=== PATIENT | male | born 1950 | race Caucasian/White ===

== ENCOUNTER 2017-05-08 11:08 | Inpatient (IN) | payer MEDICAID ==
[2017-05-08] MEDS ORDERED: Nitroglycerin 2% OINT* 1 GM PAK TOPICAL ONE (11:31)
[2017-05-08 11:46] LABS: ABS Basophils 0.1 10^3/ul (0-0.2); ABS Eosinophils 0.1 10^3/ul (0-0.6); ABS Lymphocytes 0.8 10^3/ul (1.0-4.8); ABS Monocytes 0.6 10^3/ul (0-0.8); ABS Neutrophils 8.7 10^3/ul (1.5-7.7); ABS Nucleated RBC 0 10^3/ul; Eosinophil % 0.5 % (0-6); Hematocrit 48 % (42-52); Hemoglobin 16.1 g/dl (14.0-18.0); Lymphocyte % 7.6 % (25-47); Mean Corpuscular HGB Conc 34 g/dl (31-36); Mean Corpuscular Hemoglobin 30 pg (27-31); Mean Corpuscular Volume 91 fL (80-94); Mean Platelet Volume 10 um3 (7.4-10.4); Nucleated Red Blood Cells % 0.1; Platelet Count 252 10^3/ul (150-450); Red Blood Count 5.31 10^6/ul (4.0-5.4); Red Cell Distribution Width 14 % (10.5-15); White Blood Count 10.1 10^3/ul (3.5-10.8)
[2017-05-08 12:03] LABS: EGFR Non-African American 71.1 (>60)
--- NOTE | 2017-05-08 12:08 | RAD ---
HISTORY: Shortness of breath COMPARISONS: None VIEWS: 1: frontal portable view of the chest at 11:45 AM FINDINGS: LINES AND TUBES: None. CARDIOMEDIASTINAL SILHOUETTE: The cardiac silhouette is enlarged. The cardiomediastinal silhouette is otherwise normal for portable technique. PLEURA: The costophrenic angles are sharp. No pleural abnormalities are noted. LUNG PARENCHYMA: There is prominence of the central pulmonary vasculature. ABDOMEN: The upper abdomen is clear. There is no subphrenic gas. BONES AND SOFT TISSUES: No bone or soft tissue abnormalities are noted. IMPRESSION: CARDIOMEGALY WITH PULMONARY VASCULAR CONGESTION.
[2017-05-08] MEDS ORDERED: Metoprolol Tartrate TAB* 25 MG PO ONE (13:54)
[2017-05-08] MEDS ORDERED: Metoprolol Tartrate TAB* 25 MG ONE (13:57)
--- NOTE | 2017-05-08 14:39 | PN ---
Hospitalist Progress Note Date of Service: 05/08/[address] Flores ef 10 percent, recommends low dose beta priscilla 12.5 q12, low dose itz lisinopril 2.5mg, lasix bid , nitro and recommended low dose digoxin .125 mg daily,
--- NOTE | 2017-05-08 14:39 | ECHO ---
Patient: ANGELINA HSU [facility] Rec#: [id number] : 1950 Date: 05/08/2017 Age: 66y Height: 172.72 cm / 68.0 in Weight: 80.29 kg / 177.0 lbs Sex: M BSA: 1.94 Room#: [id number] Admit Date#: 05/08/2017 Type: Inpatient Referring: Hamilton Maki NP Reading: Theodora Flores MD Derrick Car Operator: Nessa Quigley [facility] Transthoracic Echocardiogram Indication: CHF BP: 157/92 HR: 76 Rhythm: NSR with PVCs Findings History: Transferred by ambulance from [place]. SOB Technical Comments: The study quality is good. Completed at 1419. Left Ventricle: The left ventricular chamber size is mildly dilated. Posterior wall hypertrophy is observed. Severe global hypokinesis of the left ventricle is observed. There is severely decreased left ventricular systolic function. The estimated ejection fraction is less than 20%. The assessment of diastolic function is non-diagnostic. Left Atrium: The left atrium is mild to moderately dilated. Right Ventricle: The right ventricular cavity size is normal. The right ventricular global systolic function is moderately reduced. Right Atrium: The right atrium is mildly dilated. Aortic Valve: The aortic valve is trileaflet. There is no evidence of aortic valve thickening. There is no evidence of aortic regurgitation. There is no evidence of aortic stenosis. Mitral Valve: The mitral valve leaflets are mildly thickened. There is mild to moderate mitral regurgitation. There is no evidence of mitral stenosis. Tricuspid Valve: The tricuspid valve leaflets are normal. There is mild to moderate tricuspid regurgitation. The tricuspid regurgitant jet is wall impinging. There is evidence that pulmonary hypertension may be underestimated. There is no tricuspid stenosis. Pulmonic Valve: The pulmonic valve appears normal. There is no evidence of pulmonic regurgitation. There is no pulmonic stenosis. Pericardium: A pericardial effusion is visualized. A trivial pericardial effusion is visualized. There are no signs of significant hemodynamic compromise. Aorta: There is no dilatation of the ascending aorta. The aortic arch is not well visualized. There is no dilation of the aortic root. Pulmonary Artery: The main pulmonary artery appears normal. Venous: The venous system is not well visualized. Summary: There was not any prior study for comparison. Conclusions The left ventricular chamber size is mildly dilated. Severe global hypokinesis of the left ventricle is observed. There is severely decreased left ventricular systolic function. The estimated ejection fraction is less than 20%. The left atrium is mild to moderately dilated. The right atrium is mildly dilated. There is mild to moderate mitral regurgitation. There is mild to moderate tricuspid regurgitation. A trivial pericardial effusion is visualized. A pericardial effusion is visualized. There are no signs of significant hemodynamic compromise. Measurements Name Value Normal Range RVIDd (AP) 2D 3.8 cm (0.9 - 2.6) RVDdMajor (2D) 4.3 cm (2.2 - 4.4) RAd ISD 4CH 5.3 cm (3.4 - 4.9) RA (A4C)W 3.6 cm (2.9 - 4.6) IVSd (2D) 1 cm (0.6 - 1) LVPWd (2D) 1.2 cm (0.6 - 1) LVIDd (2D) 5.7 cm (3.6 - 5.4) LVIDs (2D) 5.4 cm - LV FS (2D) 5 % (25 - 45) Aortic Annulus 2.1 cm (1.4 - 2.6) Ao root diameter (2D) 3.5 cm (2.1 - 3.5) Ascending Ao 2.7 cm (2.1 - 3.4) LA dimension (AP) 2D 4.9 cm (2.3 - 3.8) LAd ISD 4CH 6.2 cm (2.9 - 5.3) LA ISD 4CH W 5 cm (2.5 - 4.5) Name Value Normal Range LA ESV SP 4CH (A/L) 93 ml - LA ESV SP 2CH (A/L) 130 ml - LA ESV BP (A/L) 120 ml - LA ESV BP (A/L) index 61.87 ml/m2 - LA ESV SP 4CH (MOD) 92 ml - LA ESV SP 2CH (MOD) 123 ml - Name Value Normal Range MV E-wave Vmax 1.1 m/sec - MV deceleration time 141 msec - MV A-wave Vmax 0.2 m/sec - MV E:A ratio 4.5 ratio - LV septal e' Vmax 0.04 m/sec - LV lateral e' Vmax 0.07 m/sec - LV E:e' septal ratio 27.5 ratio - LV E:e' lateral ratio 15.71 ratio - Name Value Normal Range AV Vmax 1 m/sec - AV VTI 18.7 cm - AV peak gradient 4.33 mmHg - AV mean gradient 2.25 mmHg - LVOT Vmax 0.8 m/sec - LVOT VTI 13.7 cm - LVOT peak gradient 2.63 mmHg - LVOT mean gradient 1.29 mmHg - Name Value Normal Range MR Vmax 5.2 m/sec - MR VTI 171 cm - Name Value Normal Range TR Vmax 2.2 m/sec - TR peak gradient 20 mmHg - RAP 8 mmHg - RVSP 28 mmHg - Name Value Normal Range PV Vmax 0.5 m/sec - PV peak gradient 1.17 mmHg -
[2017-05-08] MEDS: Heparin VIAL(*) 5000 UNITS/ML VIAL (FIVE THOUSAND) SUBCUT SCH ×2 (14:51→21:31)
[2017-05-08] MEDS: Nitroglycerin 2% OINT* 1 GM PAK TOPICAL SCH (15:04)
[2017-05-08] MEDS: Lisinopril TAB* 5 MG PO SCH (15:36)
[2017-05-08] MEDS: Furosemide IV* 10 MG/ML VIAL (40 MG) IV SLOW PU SCH (17:19)
[2017-05-08] MEDS: Digoxin TAB* 0.125 MG PO SCH (17:20)
--- NOTE | 2017-05-08 21:26 | HP ---
CC: Dr. Flores * HISTORY AND PHYSICAL: DATE OF ADMISSION: 05/08/17 PRIMARY CARE PROVIDER: None. ATTENDING PHYSICIAN WHILE IN THE HOSPITAL: Benjamin Fang MD * (report dictated by Hamilton Maki NP). CONSULTING ASSISTANT PROFESSOR OF SPANISH: Theodora Flores MD CHIEF COMPLAINT: 1. Orthopnea. 2. Shortness of breath. 3. Cannot lie flat. HISTORY OF PRESENT ILLNESS: Mr. Zamora is a 66-year-old male patient who does not see a physician routinely. He says that 3 weeks ago, he noticed he was walking up his driveway from [place], which is a steep hill, and he normally can do it with ease. Unfortunately, over the last week, he noticed that he had to stop 4 times. He was having dyspnea on exertion. He had no chest tightness, no pressure in his chest, but he was concerned because he just could not do it. He noted that progressively over the last 2 weeks, he has had worsening shortness of breath. No weight gain. He cannot lie flat. He says he had to stand upright to breathe. He was concerned today because he could not lie down elevated. He was so short of breath, he had to stand up. He has not been sleeping at night because he had been more short of breath. There has been no cough, no fevers, no vomiting or diarrhea. He has had no leg swelling and no weight gain, but he was concerned because his breathing just was not getting any better. He says he has not had any chest pain or chest tightness. He has had 2 episodes of epigastric pain only, but no chest discomfort and he is not having any discomfort currently. Again to his knowledge, he has no medical problems. He was told one time that his blood pressure was high at a blood donating site; but other than that, no known medical history. He went to [facility] today. It was noted that he appeared to be in failure. It was also noted that his blood pressure was elevated. He was having PVCs. His troponin was ultimately noted to be elevated and his BNP was 3600. There was concern that he may be in failure and we were asked to evaluate for admission. PAST MEDICAL HISTORY: Denied. PAST SURGICAL HISTORY: Denied. HOME MEDICATIONS: He is taking aspirin 1 tablet 1 to 2 times daily as needed, which he just started yesterday, he does not know the dose. ALLERGIES TO MEDICATIONS: Include no known drug allergies. FAMILY HISTORY: Mother had a history of cancer. Father had a history of dying at the age of 90, he says from old age. He does state that his father's parents did have heart trouble. SOCIAL HISTORY: He rarely drinks alcohol. He is a former smoker. He denies any drug use. Surrogate decision maker is his sister. REVIEW OF SYSTEMS: Again, there is no documented fever. He says he has not gained any explained weight. He denies having any chest pain. There has been orthopnea. There has been nocturnal dyspnea. There has been dyspnea on exertion. There has been no nausea. No vomiting. There has no dysuria. There has been no frequency. No seizure, no loss of consciousness. No pruritus and no skin ulcerations. Review of 14 systems completed, all others negative. PHYSICAL EXAMINATION GENERAL: At this time, Mr. Zamora is a 66-year-old male patient. He is sitting in the ED stretcher. He does not appear to be in any acute distress. VITAL SIGNS: Blood pressure 167/118, pulse 87, respirations 18, O2 sat 97%, temperature 99. HEENT: Head: Atraumatic. Eyes: Sclerae anicteric and not pale. Throat: Oral mucosa appears to be moist. No oropharyngeal erythema. NECK: Supple. LUNGS: He had crackles in the lower lobes. Equal diaphragmatic expansion. HEART: Sounds S1, S2. He had regular rate and rhythm. No murmurs, rubs, or gallops. ABDOMEN: Soft, flat, nontender. Bowel sounds present. EXTREMITIES: Pulses 2+ throughout. He had no pitting edema. He is moving all 4 extremities with 5/5 strength. NEUROLOGIC: The patient is awake, alert, oriented x3. Tongue midline. Public Health Administrator were equal. No gross focal deficits. SKIN: Grossly intact. DIAGNOSTIC STUDIES/LAB DATA: WBC of 10.1, RBC of 5.31, hemoglobin 16.1, hematocrit of 48, platelet count of 252. Sodium 140, potassium 4.2, chloride of 104, bicarb 28, BUN 15, creatinine of 1.05, glucose 153, lactic 2, calcium 9.2. Total bili 1.3, AST 22, ALT 24, alk phos 63. Troponin 0.07. BNP 3600. Albumin of 4.3. He did have a chest x-ray obtained today, impression: Cardiomegaly with pulmonary vascular congestion. EKG shows no previous for comparison, appears that he has LVH. He has inverted T-waves in V4 and V5. No ST elevations. PVC is noted and again no previous for comparison. Old medical records were reviewed. ASSESSMENT AND PLAN: Mr. Zamora is a 66-year-old male patient with no reported medical problems, although he has not seen a physician since the late 50s. We were asked to evaluate for admission today as there is concern for congestive heart failure. He will be admitted under inpatient status. 1. Congestive heart failure and cardiomyopathy. I presume the patient does have some type of cardiomyopathy. It may be related to uncontrolled blood pressure. Last blood pressure was 164/118. I would like to try to get that down. I did put him on lisinopril. We are giving him Lasix and we will start nitro paste. My goal is to try to get him between a blood pressure systolics less than 110 and diastolic between 140 and 160. We will continue his meds and follow. We will diurese him. We are getting an echo as I assume he has cardiomyopathy. It may be ischemic but it probably is hypertensive related. I did get a Cardiology consult. We will cycle those troponins. It is mildly elevated. It is probably related to demand ischemia from the failure. He is not having any chest pain currently. He will be placed on telemetry. We will check daily weights and we will follow him closely. Because of concern of possible ischemic cardiomyopathy, also will check an A1c and a lipid profile. He is on aspirin. I am not giving him a beta-priscilla at this point because of decompensated heart failure. I am concerned that beta- blockers could make things worse. So, we will do nitrates, DARYL inhibitor, Lasix twice a day and we will follow him closely. 2. Hypertension. Again, he is going to be on Lasix, lisinopril, nitro for now and we will consider adding a beta-priscilla after we get the echo to help us further steer his care. 3. DVT prophylaxis. He will be placed on heparin subcu. 4. Code status. Full code. 5. Fluids, electrolytes, nutrition. Heart-healthy diet. I did put a Nutrition consult in as he does have what appears to be heart failure and need education. TIME SPENT: Time spent on the admission was approximately 60 minutes, greater than half the time was spent [id number] with the patient obtaining my history and physical, other half of the time spent going over the plan of care and implementing plan of care. I did discuss plan of care with my attending, Dr. Fang, he is in agreement. HAMILTON MAKI, SPRINKLER DRIVER [id number]/CPS #: [id number] NOVA
[2017-05-08] MEDS: Nitro Patch/OINT Remove TOPICAL SCH (21:32)
--- NOTE | 2017-05-08 22:32 | CONS ---
CC: Hamilton Maki NP; Hospitalist Service; Dr. Flores * CARDIOLOGY CONSULTATION: DATE OF CONSULTATION: 05/08/17 HISTORY OF PRESENT ILLNESS: I was asked by Hamilton Maki from the hospitalist service to see this 66-year-old male patient who initially presented to the emergency room at [facility], then transferred to our facility for significant shortness of breath, congestive heart failure, and significant hypertension. The patient, who not see a primary care physician, according to him, gives no history of diabetes, hypertension or hyperlipidemia, although he is not aware of medical conditions because he does not see a doctor. He presented for a 3 to 4 weeks' progressive symptoms of shortness of breath on exertion, unable to lie flat at night. He sits on a recliner to fall asleep because of significant shortness of breath. No significant weight gain or swelling in the lower extremities. He gives no history of congestive heart failure, myocardial infarction, coronary artery disease, infective endocarditis or rheumatic fever. He has not been on any medications. He used to smoke. He quit it 20 years ago. He drinks rarely alcohol. No history of illicit drug use. He gives no symptoms of chest pain. No fever. No nausea, no vomiting, no hematochezia. No skin rash. No abdominal pain. No syncope. No palpitations. No tachycardia. In the emergency room, in [facility], his blood pressure systolic was reported to be more than 200. He was found to have significantly elevated BNP and in congestive heart failure. He was transferred to our facility for further management. He had no symptoms of chest pain. No jaw pain and no arm pain. In our facility, he was found to have a BNP of 3627 and his initial troponin at 11:30 this morning was 0.07. He had again no symptoms of chest pain. He had an echocardiogram that was just done and completed, showed a global severe reduction of left ventricular systolic function with EF less than 20% in a global fashion. There is moderate probably mitral insufficiency. There is a trivial to small pericardial effusion without any hemodynamic compromise. He was admitted to the telemetry floor for further management of cardiomyopathy and congestive heart failure. PAST MEDICAL HISTORY: Essentially unremarkable. PAST SURGICAL HISTORY: Unremarkable. MEDICATIONS: As an outpatient are none. Medications as an inpatient: 1. Aspirin 81 mg daily. 2. Digoxin 0.125 mg daily. 3. Lasix 40 mg IV b.i.d. 4. Heparin 5000 units subcu q.8 hours. 5. Lisinopril 2.5 mg daily. 6. Metoprolol 12.5 mg q.12 hours. 7. Nitro 1 inch q.6. ALLERGIES: No known drug allergies. FAMILY HISTORY: He has family history of coronary artery disease in his grandparents. SOCIAL HISTORY: He has no kids. He is single. He gives no history of smoking , no significant drinking. No history of illicit drug use. PHYSICAL EXAMINATION: He is awake, alert, and oriented. He had no symptoms of chest pain. His initial vitals: Blood pressure 142/91. Originally when he presented to the emergency room, it was reported to be 167/118. Heart rate is 80, in sinus rhythm. He is afebrile. Temperature 99, respiratory rate is 17. Head exam: Normocephalic, atraumatic head. Ears, nose, and throat essentially benign. Neck: Supple. JVP is elevated at 5 cm at 45 degrees. Chest: Diminished air entry at the bases. No significant rhonchi or wheeze. Heart: Normal, regular. S1, S2. No added sounds. No gallops. No rubs. No significant murmurs. Abdomen: Obese, soft. Positive bowel sounds. Extremities : No significant edema. STRATEGY MANAGER: No focal deficits appreciated. Skin Exam: Normal. Psych: Normal affect and mood. LABORATORY DATA/DIAGNOSTIC STUDIES: White blood cell 10.1, hemoglobin 16.1, hematocrit 48, platelets 252,000. Sodium 140, potassium 4.2, chloride 104, total CO2 28, BUN 15, creatinine 1.05. AST 41. Troponin 0.07. TSH is pending. His chest x-ray was reported to have cardiomegaly with pulmonary vascular congestion. His EKG showed him to be sinus rhythm. There is left atrial enlargement. There is PVC occasional isolated. There is LVH and secondary ST-T changes. IMPRESSION: The patient is a 66-year-old male with: 1. Presentation and transfer from [facility] Emergency Room with congestive heart failure of unknown duration. According to the patient, had been going on for about 4 weeks. 2. Severe cardiomyopathy, global in nature by an echo. Transthoracic echo done today with an EF less than 20%. 3. Significant malignant systemic arterial hypertension. His blood pressure was reported to be more than 220 systolic in the emergency room at [place]. 4. Borderline troponin, I believe, related to his acute decompensated congestive heart failure, systolic in nature. 5. Abnormal EKG with element of of LVH and PVCs. 6. Obesity. 7. Systemic arterial hypertension. 8. Unknown cholesterol status and TSH is still pending. 9. Moderate mitral insufficiency probably related to his severe cardiomyopathy. PLAN: This patient is currently on the telemetry floor. I had a lengthy discussion with Hamilton Maki from the hospitalist service and his management. I agree fully with low dose beta-priscilla, digoxin, DARYL inhibitor, Lasix, and nitro for now. Priority is to control his hypertension and help him diurese for his acutely decompensated systolic congestive heart failure. Definitely, Is and Os, daily weight, total sodium less than 2 g per 24 hours and total fluid less than 2 L per 24 hours. [facility], it would be difficult to know in the future what will happen actually. At some point, he will need a cardiac catheterization to evaluate his coronary artery and definitely consideration before leaving the hospital with a LifeVest given his severe cardiomyopathy. I have discussed this at length with the patient. He is agreeable with the plan for now. Any further recommendations will be pending his clinical outpatient. Thank you very much for asking us to participate in the care of this patient. TIME SPENT: More than half of at least 60 to 65 plus minutes was in the education and counseling mode [id number] explaining all of the above and making further recommendations. [id number]/CPS #: [id number] [facility]OVA
[2017-05-09] MEDS: Heparin VIAL(*) 5000 UNITS/ML VIAL (FIVE THOUSAND) SUBCUT SCH ×3 (05:35→21:24)
[2017-05-09 06:22] LABS: ABS Basophils 0.1 10^3/ul (0-0.2); ABS Eosinophils 0.5 10^3/ul (0-0.6); ABS Lymphocytes 1.6 10^3/ul (1.0-4.8); ABS Monocytes 0.7 10^3/ul (0-0.8); ABS Neutrophils 4.2 10^3/ul (1.5-7.7); ABS Nucleated RBC 0 10^3/ul; Eosinophil % 6.6 % (0-6); Hematocrit 46 % (42-52); Hemoglobin 15.7 g/dl (14.0-18.0); Mean Corpuscular HGB Conc 34 g/dl (31-36); Mean Corpuscular Hemoglobin 31 pg (27-31); Mean Corpuscular Volume 90 fL (80-94); Mean Platelet Volume 10 um3 (7.4-10.4); Nucleated Red Blood Cells % 0.1; Platelet Count 225 10^3/ul (150-450); Red Blood Count 5.14 10^6/ul (4.0-5.4); Red Cell Distribution Width 14 % (10.5-15); White Blood Count 7.1 10^3/ul (3.5-10.8)
[2017-05-09 06:26] LABS: INR 1.05 (0.77-1.02)
[2017-05-09 06:36] LABS: EGFR Non-African American 62.1 (>60)
[2017-05-09] MEDS: Furosemide IV* 10 MG/ML VIAL (40 MG) IV SLOW PU SCH ×2 (08:14→16:40)
[2017-05-09] MEDS: Lisinopril TAB* 5 MG PO SCH (08:14)
[2017-05-09] MEDS: Metoprolol Tartrate TAB* 25 MG PO SCH ×2 (08:16→19:40)
[2017-05-09] MEDS: Aspirin Low Dose CHEW TAB* 81 MG PO SCH (08:17)
[2017-05-09] MEDS: Nitroglycerin 2% OINT* 1 GM PAK TOPICAL SCH ×2 (08:18→13:56)
[2017-05-09] MEDS ORDERED: Potassium Chlor TAB* 20 MEQ TAB.ER PO ONE (11:23)
--- NOTE | 2017-05-09 11:23 | PN ---
Subjective Date of Service: 05/09/17 Interval History: Mr. Zamora reports that he feels 100% better. He is now able to lie down and sleep whereas before he had severe orthopnea. He denies chest pain or any other complaint. Objective Active Medications: Aspirin (Aspirin Low Dose Tab*) 81 mg PO DAILY [facility] Digoxin (Lanoxin Tab*) 0.125 mg PO 1700 [facility] Furosemide (Lasix Iv*) 40 mg IV SLOW PU 0800,1700 [facility] Heparin Sodium (Porcine) (Heparin Vial(*)) 5,000 units SUBCUT Q8HR [facility] Lisinopril (Prinivil Tab*) 2.5 mg PO DAILY [facility] Metoprolol Tartrate (Lopressor Tab*) 12.5 mg PO Q12HR [facility] Nitroglycerin (Nitroglycerin 2% Oint*) 1 inch TOPICAL 0800,1400 [facility] Pharmacy Profile Note (Nitro Patch/Oint Remove*) 1 note TOPICAL 1999 [facility] Vital Signs: Temp Pulse Resp BP Pulse Ox 98.3 F 65 16 151/95 95 05/09/17 08:09 05/09/17 08:09 05/09/17 08:09 05/09/17 08:09 05/09/17 08:11 Oxygen Devices in Use Now: Nasal Cannula Appearance: Male sitting up in bed in NAD Eyes: No Scleral Icterus Ears/Nose/Mouth/Throat: Mucous Membranes Moist Neck: Trachea Midline Respiratory: Symmetrical Chest Expansion and Respiratory Effort, Clear to Auscultation Cardiovascular: NL Sounds; No Murmurs; No JVD, No Edema Abdominal: NL Sounds; No Tenderness; No Distention Lymphatic: No Cervical Adenopathy Extremities: No Edema Skin: No Rash or Ulcers Neurological: Alert and Oriented x 3, NL Muscle Strength and Tone Nutrition: Taking PO's Result Diagrams: 05/09/17 05:53 05/09/17 05:53 Assess/Plan/Problems-Billing Assessment: Mr. Zamora is a 66 yo M with a PMH of who was admitted on 05/08/17 with orthopnea and SOB found to have newly diagnosed systolic CHF with EF 10%. - Patient Problems (1) CHF (congestive heart failure) Comment: - Newly diagnosed with EF < 20%. - Appreciate cardiology consultation. Plan for cardiac cath on Thursday. - Continue aspirin, digoxin, lasix BID, lisinopril, metoprolol, and nitroglycerin. (2) V-tach Comment: - Non-sustained, asymptomatic. - Replete K and check Mag. (3) Hypertension Comment: - SBP 100-150s. - Continue lisinopril and metoprolol. (4) DVT prophylaxis Comment: - Heparin SQ. (5) Full code status Comment: Status and Disposition: Inpatient with expected LOS > 2 days. Anticipate discharge to home when medically stable.
[2017-05-09] MEDS: Spironolactone TAB* 25 MG PO SCH (13:57)
[2017-05-09] MEDS: Digoxin TAB* 0.125 MG PO SCH (16:40)
--- NOTE | 2017-05-09 17:12 | PN ---
Subjective Date of Service: 05/09/17 - CC: SOB Interval History: The patient was examined with his 2 brothers present. He states his breating is much improved, improvement in the oerthopnea and PND he has had for about 2 weeks. He has been urinating significantly. Medications Active Medications: Aspirin (Aspirin Low Dose Tab*) 81 mg PO DAILY [facility] Last Admin: 05/09/17 08:17 Dose: 81 mg Digoxin (Lanoxin Tab*) 0.125 mg PO 1700 [facility] Last Admin: 05/09/17 16:40 Dose: 0.125 mg Furosemide (Lasix Iv*) 40 mg IV SLOW PU 0800,1700 [facility] Last Admin: 05/09/17 16:40 Dose: 40 mg Heparin Sodium (Porcine) (Heparin Vial(*)) 5,000 units SUBCUT Q8HR [facility] Last Admin: 05/09/17 13:57 Dose: 5,000 units Lisinopril (Prinivil Tab*) 2.5 mg PO DAILY [facility] Last Admin: 05/09/17 08:14 Dose: 2.5 mg Metoprolol Tartrate (Lopressor Tab*) 12.5 mg PO Q12HR [facility] Last Admin: 05/09/17 08:16 Dose: 12.5 mg Nitroglycerin (Nitroglycerin 2% Oint*) 1 inch TOPICAL 0800,1400 [facility] PRN Reason: Protocol Last Admin: 05/09/17 13:56 Dose: 1 inch Pharmacy Profile Note (Nitro Patch/Oint Remove*) 1 note TOPICAL 1999 [facility] Last Admin: 05/08/17 21:32 Dose: 1 apply Spironolactone (Aldactone Tab*) 25 mg PO DAILY [facility] Last Admin: 05/09/17 13:57 Dose: 25 mg Objective Vital Signs: Temp Pulse Resp BP Pulse Ox 98.3 F 66 16 141/93 97 05/09/17 11:33 05/09/17 16:40 05/09/17 15:15 05/09/17 15:15 05/09/17 15:15 Oxygen Devices in Use Now: Nasal Cannula Appearance: Somewhat older gentleman, seated, talking, appears in no disterss. Eyes: No Scleral Icterus, PERRLA Ears/Nose/Mouth/Throat: Clear Oropharnyx Neck: NL Appearance and Movements; NL JVP, Trachea Midline Respiratory: Symmetrical Chest Expansion and Respiratory Effort, Clear to Auscultation Cardiovascular: NL Sounds; No Murmurs; No JVD, RRR Abdominal: NL Sounds; No Tenderness; No Distention Extremities: No Edema Skin: No Rash or Ulcers Neurological: Alert and Oriented x 3, NL Gait Lines/Tubes/Other Access: Clean, Dry and Intact Peripheral IV Laboratory Results: 05/09/17 05:53 05/09/17 05:53 INR (Anticoag Therapy) 1.05 (0.77-1.02) H 05/09/17 05:53 Total Bilirubin 1.30 mg/dL (0.2-1.0) H 05/08/17 11:34 AST 22 U/L (13-39) 05/08/17 11:34 ALT 24 U/L (7-52) 05/08/17 11:34 Alkaline Phosphatase 63 U/L (34-104) 05/08/17 11:34 B-Natriuretic Peptide 3627 pg/mL (-100) H 05/08/17 11:34 Total Protein 7.0 g/dL (6.4-8.9) 05/08/17 11:34 Albumin 4.3 g/dL (3.2-5.2) 05/08/17 11:34 Globulin 2.7 g/dL (2-4) 05/08/17 11:34 Albumin/Globulin Ratio 1.6 (1-3) 05/08/17 11:34 Triglycerides 110 mg/dL 05/09/17 05:53 Cholesterol 162 mg/dL 05/09/17 05:53 LDL Cholesterol 101 mg/dL 05/09/17 05:53 HDL Cholesterol 38.8 mg/dL 05/09/17 05:53 TSH 3.20 mcIU/mL (0.34-5.60) 05/08/17 11:34 05/08/17 05/08/17 05/09/17 15:29 18:20 00:05 Troponin I 0.07 H* 0.08 H* 0.07 H* Diagnostic Imaging: ECHO 05/08/17: EF 20%, moderate MR, moderate TR. EKG Data: Monitor: NSR ECG: NSR, newly flipped T waves, low volts limb leads. Assessment/Plan 66 yo male admitted with CHF, severe cardiomyopathy. Symptoms present for approximately 2 weeks. The patient has improved clinically overight with diuresis. CM: Etiology is unclear. No history of anginal equivalents, no history of infection. With mild elevation in troponins and inverted T waves I recommend cardiac catheterization. WRT medical managment: Continue lopressor Continue ACEI Continue lasix for now. Added aldactone. I will stop NTG paste. Recommend checking ESR/CRP in case myocarditis (done).
[2017-05-09] MEDS: Nitro Patch/OINT Remove TOPICAL SCH (19:44)
[2017-05-10] MEDS: Heparin VIAL(*) 5000 UNITS/ML VIAL (FIVE THOUSAND) SUBCUT SCH ×3 (05:16→21:34)
[2017-05-10 06:13] LABS: EGFR Non-African American 59.8 (>60)
[2017-05-10] MEDS: Furosemide IV* 10 MG/ML VIAL (40 MG) IV SLOW PU SCH (07:54)
[2017-05-10] MEDS: Metoprolol Tartrate TAB* 25 MG PO SCH ×2 (09:35→21:34)
[2017-05-10] MEDS: Lisinopril TAB* 5 MG PO SCH (09:36)
[2017-05-10] MEDS: Aspirin Low Dose CHEW TAB* 81 MG PO SCH (09:37)
[2017-05-10] MEDS: Spironolactone TAB* 25 MG PO SCH (09:37)
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
--- NOTE | 2017-05-10 14:43 | PN ---
Subjective Date of Service: 05/10/17 Interval History: Mr. Zamora reports that he is feeling fine today and has no acute complaints. He specifically denies chest pain or SOB and states that he is now able to lay flat without orthopnea. Objective Active Medications: Aspirin (Aspirin Low Dose Tab*) 81 mg PO DAILY [facility] Diazepam (Valium Tab(*)) 5 mg PO ONCE ONE Digoxin (Lanoxin Tab*) 0.125 mg PO 1700 [facility] Diphenhydramine HCl (Benadryl Po*) 25 mg PO ONCE ONE Furosemide (Lasix Tab*) 20 mg PO DAILY [facility] Heparin Sodium (Porcine) (Heparin Vial(*)) 5,000 units SUBCUT Q8HR [facility] Sodium Chloride (Ns 0.9% 1000 Ml*) 1,000 mls @ 75 mls/hr IV .per rate [facility] Lisinopril (Prinivil Tab*) 2.5 mg PO DAILY [facility] Metoprolol Tartrate (Lopressor Tab*) 12.5 mg PO Q12HR [facility] Spironolactone (Aldactone Tab*) 25 mg PO DAILY [facility] Vital Signs: Temp Pulse Resp BP Pulse Ox 97.8 F 65 16 132/79 98 05/10/17 11:15 05/10/17 11:15 05/10/17 11:15 05/10/17 11:15 05/10/17 11:15 Oxygen Devices in Use Now: None Appearance: Male sitting up in chair in NAD Eyes: No Scleral Icterus Ears/Nose/Mouth/Throat: Mucous Membranes Moist Neck: NL Appearance and Movements; NL JVP Respiratory: Symmetrical Chest Expansion and Respiratory Effort, Clear to Auscultation Cardiovascular: NL Sounds; No Murmurs; No JVD, No Edema Abdominal: NL Sounds; No Tenderness; No Distention Lymphatic: No Cervical Adenopathy Extremities: No Edema Skin: No Rash or Ulcers Neurological: Alert and Oriented x 3 Nutrition: Taking PO's Result Diagrams: 05/09/17 05:53 05/10/17 05:50 Assess/Plan/Problems-Billing Assessment: Mr. Zamora is a 66 yo M with a PMH of who was admitted on 05/08/17 with orthopnea and SOB found to have newly diagnosed systolic CHF with EF 10%. - Patient Problems (1) CHF (congestive heart failure) Comment: - Newly diagnosed with EF < 20%. - Appreciate cardiology consultation. Plan for cardiac cath on Thursday. - Continue aspirin, digoxin, lasix BID, lisinopril, metoprolol, and nitroglycerin. (2) V-tach Comment: - Non-sustained, asymptomatic. - Replete K and check Mag. (3) Hypertension Comment: - SBP 100-150s. - Continue lisinopril and metoprolol. (4) DVT prophylaxis Comment: - Heparin SQ. (5) Full code status Comment: Status and Disposition: Inpatient with expected LOS > 2 days. Anticipate discharge to home when medically stable.
[2017-05-10] MEDS: Digoxin TAB* 0.125 MG PO SCH (16:49)
--- NOTE | 2017-05-10 22:48 | ED ---
Nino Gilliam Jennifer, scribed for Allen Lopez MD on 05/08/17 at 1139 . Shortness of Breath - HPI Summary HPI Summary: The patient is a 66 year old male who was transferred from [facility] for difficulty breathing that began three weeks ago. The patient cant breathe when he is standing and sitting, but denies problems breathing in the ED today. He explains that he hasnt been able to sleep at night. The patient denies pain and any weight gain. - History of Current Complaint Hx Obtained From: EMS Onset/Duration: Lasting Weeks - three weeks, Still Present Timing: Constant Current Severity: Moderate Aggrevating Factors: Other - Sitting, standing Alleviating Factors: Nothing Associated Signs & Symptoms: Negative - Pain, weight gain - Allergy/Home Medications Allergies/Adverse Reactions: Allergies Allergy/AdvReac Type Severity Reaction Status Date / Time No Known Allergies Allergy Verified 05/08/17 11:31 Home Medications: Home Medications Aspirin EC TAB* [Ecotrin EC TAB*] 650 mg PO DAILY 05/08/17 [History] Multivitamins/Minerals TAB* [Theragran/minerals TAB*] 1 tab PO DAILY 05/08/17 [ History Confirmed 05/08/17] PMH/Surg Hx/FS Hx/Imm Hx Endocrine/Hematology History: Denies: Hx Diabetes Cardiovascular History: Denies: Hx Hypertension Infectious Disease History: Unable to Obtain/Confirm Infectious Disease History: Denies: Traveled Outside the [place] in Last 30 Days - Family History Known Family History: Positive: Diabetes Negative: Hypertension - Social History Smoking Status (MU): Former Smoker - Quit 20 years ago Review of Systems Negative: Fever, Chills Negative: Erythema Negative: Sore Throat Negative: Chest Pain Positive: Shortness Of Breath. Negative: Cough Negative: Abdominal Pain, Vomiting, Nausea Negative: dysuria, hematuria Negative: Myalgia, Edema Negative: Rash Neurological: Negative - Dizziness All Other Systems Reviewed And Are Negative: Yes Physical Exam - Summary Physical Exam Summary: Constitutional: Well-developed, Well nourished, Alert. (-) Distressed Skin: Warm, Dry HENT: Normocephalic; Atraumatic Eyes: Conjunctiva normal Neck: Musculoskeletal ROM normal neck. (-) JVD, (-) Stridor, (-) Tracheal deviation Cardio: Rhythm regular, rate normal, Heart sounds normal; Intact distal pulses; The pedal pulses are 2+ and symmetric. Radial pulses are 2+ and symmetric. (-) Murmur Pulmonary/Chest wall: (-) Respiratory distress, Faint crackles in the bases Abd: Soft, (-) Tenderness, (-) Distension, (-) Guarding, (-) Rebound Musculoskeletal: (-) Edema Lymph: (-) Cervical adenopathy Neuro: Alert, Oriented x3 Psych: Mood and affect Normal Triage Information Reviewed: Yes Vital Signs On Initial Exam: Initial Vitals BP 179/145 05/08/17 11:16 Vital Signs Reviewed: Yes Diagnostics - Vital Signs Vital Signs Temp Pulse Resp BP Pulse Ox 05/08/17 11:18 77 98 05/08/17 11:17 98 F 80 20 175/145 99 05/08/17 11:16 179/145 - Laboratory Result Diagrams: 05/08/17 11:34 05/08/17 11:34 Lab Statement: Any lab studies that have been ordered have been reviewed, and results considered in the medical decision making process. - Radiology CXR Xray Interpretation: Positive (See Comments) - CARDIOMEGALY WITH PULMONARY VASCULAR CONGESTION. Dr. Lopez has reviewed this report. Radiology Interpretation Completed By: Radiologist - EKG 11:16 EKG Rhythm: Sinus Rhythm - 77 BPM Ectopy: PVCs - occasional EKG Interpretation: Multiform ventricular premature complexes, LVH, TWI V4-V6, no STEMI Course/Dx - Course Assessment/Plan: The patient is a 66 year old male who was transferred from [facility] for difficulty breathing that began three weeks ago. In the ED course the patient was given NTG. Bloodwork was obtained. EKG was obtained. CXR shows CARDIOMEGALY WITH PULMONARY VASCULAR CONGESTION. The patient is diagnosed with CHF exacerbation and Elevated troponin. I do not expect ND. The patient will be admitted to [facility]. - Diagnoses Provider Diagnoses: CHF exacerbation, Elevated troponin - Physician Notifications Discussed Care of Patient With: Benjamin Fang Time Discussed With Above Provider: 12:25 Instructed by Provider To: Admit As Inpatient Discharge - Discharge Plan Condition: Fair Disposition: ADMITTED TO [facility] Referrals: [facility] PHYSICIAN REFERRAL [Outside] The documentation as recorded by the Nino meneses Jennifer accurately reflects the service I personally performed and the decisions made by , Allen Lopez MD.
[2017-05-11] MEDS: Heparin VIAL(*) 5000 UNITS/ML VIAL (FIVE THOUSAND) SUBCUT SCH ×3 (05:27→21:20)
[2017-05-11] MEDS ORDERED: Diazepam TAB(*) 5 MG PO ONE (06:00)
[2017-05-11] MEDS ORDERED: diPHENhydraMINE PO* 25 MG PO ONE (06:00)
[2017-05-11] MEDS ORDERED: NS 0.9% 1000 ML* 1,000 ML IV SCH (06:00)
[2017-05-11 06:16] LABS: EGFR Non-African American 55.1 (>60)
[2017-05-11] MEDS: Lisinopril TAB* 5 MG PO SCH (08:18)
[2017-05-11] MEDS: Aspirin Low Dose CHEW TAB* 81 MG PO SCH (08:18)
[2017-05-11] MEDS: Metoprolol Tartrate TAB* 25 MG PO SCH ×2 (08:18→21:18)
--- NOTE | 2017-05-11 10:06 | PN ---
Subjective Date of Service: 05/11/17 Interval History: Mr. Zamora states that he is feeling quite well. He has been able to ambulate independently on the unit off oxygen without dysnea or chest pain. Objective Active Medications: Aspirin (Aspirin Low Dose Tab*) 81 mg PO DAILY [facility] Digoxin (Lanoxin Tab*) 0.125 mg PO 1700 [facility] Furosemide (Lasix Tab*) 20 mg PO DAILY [facility] Heparin Sodium (Porcine) (Heparin Vial(*)) 5,000 units SUBCUT Q8HR [facility] Lisinopril (Prinivil Tab*) 2.5 mg PO DAILY [facility] Metoprolol Tartrate (Lopressor Tab*) 12.5 mg PO Q12HR [facility] Spironolactone (Aldactone Tab*) 25 mg PO DAILY [facility] Vital Signs: Temp Pulse Resp BP Pulse Ox 98.5 F 54 16 136/85 100 05/11/17 08:06 05/11/17 08:06 05/11/17 08:06 05/11/17 08:06 05/11/17 08:06 Oxygen Devices in Use Now: None Appearance: Male sitting up in chair in NAD Eyes: No Scleral Icterus Ears/Nose/Mouth/Throat: Mucous Membranes Moist Neck: Trachea Midline Respiratory: Symmetrical Chest Expansion and Respiratory Effort, Clear to Auscultation Cardiovascular: NL Sounds; No Murmurs; No JVD, No Edema Abdominal: NL Sounds; No Tenderness; No Distention Lymphatic: No Cervical Adenopathy Extremities: No Edema Skin: No Rash or Ulcers Neurological: Alert and Oriented x 3, NL Muscle Strength and Tone Nutrition: Taking PO's Result Diagrams: 05/09/17 05:53 05/11/17 05:47 Assess/Plan/Problems-Billing Assessment: Mr. Zamora is a 66 yo M with a PMH of who was admitted on 05/08/17 with orthopnea and SOB found to have newly diagnosed systolic CHF with EF 10%. - Patient Problems (1) CHF (congestive heart failure) Comment: - Symptoms greatly improved, no orthopnea or BURROWS. - Newly diagnosed with EF < 20%. - Appreciate cardiology consultation. Unable to cardiac cath today as his creatinine is rising. Plan to follow up outpatient with Dr. Flores. - Continue aspirin, digoxin, lasix, lisinopril, metoprolol, spironolactone. (2) V-tach Comment: - Non-sustained, asymptomatic. - Replete K and check Mag. - Life vest ordered. (3) Hypertension Comment: - SBP 100-150s. - Continue lisinopril, metoprolol, lasix and spironolactone. (4) DVT prophylaxis Comment: - Heparin SQ. (5) Full code status Comment: Status and Disposition: Inpatient with expected LOS > 2 days. Anticipate discharge to home when medically stable and life vest received.
[2017-05-11] MEDS: Spironolactone TAB* 25 MG PO SCH (10:40)
[2017-05-11] MEDS: Furosemide TAB* 20 MG PO SCH (10:40)
[2017-05-11] MEDS: Digoxin TAB* 0.125 MG PO SCH (17:02)
[2017-05-12] MEDS: Heparin VIAL(*) 5000 UNITS/ML VIAL (FIVE THOUSAND) SUBCUT SCH ×3 (05:27→21:42)
[2017-05-12 06:32] LABS: EGFR Non-African American 52.8 (>60)
[2017-05-12] MEDS: Lisinopril TAB* 5 MG PO SCH (09:37)
[2017-05-12] MEDS: Metoprolol Tartrate TAB* 25 MG PO SCH ×3 (09:37→21:44)
[2017-05-12] MEDS: Spironolactone TAB* 25 MG PO SCH (09:37)
[2017-05-12] MEDS: Aspirin Low Dose CHEW TAB* 81 MG PO SCH (09:37)
[2017-05-12] MEDS: Furosemide TAB* 20 MG PO SCH (09:37)
[2017-05-12] MEDS: Digoxin TAB* 0.125 MG PO SCH (16:56)
--- NOTE | 2017-05-12 17:05 | PN ---
Subjective Date of Service: 05/12/17 Interval History: No Complaints, able to ambulate around unit at a brisk pace without dyspnea. No orthopnea, edema, CP, Palpitations, SOB, BURROWS or other pain. Denies F/C, N/V, abdominal pain, diarrhea, constipation, dysuria, MERRILL, Changes in vision, or other pain. Patient is impatient for discharge but understands the risks of leaving without the life vest and is willing to stay. Questioned why they could not do the cardiac catheterization inpatient. Discussed with cardiology and they will reevaluate tomorrow. Family History: Unchanged from Admission Social History: Unchanged from Admission Past Medical History: Unchanged from Admission Objective Active Medications: Aspirin (Aspirin Low Dose Tab*) 81 mg PO DAILY [facility] Last Admin: 05/12/17 09:37 Dose: 81 mg Digoxin (Lanoxin Tab*) 0.125 mg PO 1700 [facility] Last Admin: 05/12/17 16:56 Dose: 0.125 mg Furosemide (Lasix Tab*) 20 mg PO DAILY [facility] Last Admin: 05/12/17 09:37 Dose: 20 mg Heparin Sodium (Porcine) (Heparin Vial(*)) 5,000 units SUBCUT Q8HR [facility] Last Admin: 05/12/17 14:57 Dose: 5,000 units Lisinopril (Prinivil Tab*) 2.5 mg PO DAILY [facility] Last Admin: 05/12/17 09:37 Dose: 2.5 mg Metoprolol Tartrate (Lopressor Tab*) 12.5 mg PO Q12HR [facility] Last Admin: 05/12/17 09:37 Dose: 12.5 mg Spironolactone (Aldactone Tab*) 25 mg PO DAILY [facility] Last Admin: 05/12/17 09:37 Dose: 25 mg Vital Signs - 8 hr 05/12/17 05/12/17 05/12/17 11:06 15:48 16:56 Temperature 98.0 F 98.1 F Pulse Rate 53 54 60 Respiratory 16 12 Rate Blood Pressure 146/74 148/75 (mmHg) O2 Sat by Pulse 99 99 Oximetry Oxygen Devices in Use Now: None Appearance: Patient is a 66yo male who appears stated age and is sitting in the chair in NAD. Eyes: No Scleral Icterus, PERRLA Ears/Nose/Mouth/Throat: NL Teeth, Lips, Gums, Clear Oropharnyx, Mucous Membranes Moist Neck: NL Appearance and Movements; NL JVP, Trachea Midline Respiratory: Symmetrical Chest Expansion and Respiratory Effort, Clear to Auscultation Cardiovascular: NL Sounds; No Murmurs; No JVD, RRR, No Edema, - - Pulses 2+ in B /L LE. Abdominal: NL Sounds; No Tenderness; No Distention, No Hepatosplenomegaly Lymphatic: No Cervical Adenopathy Extremities: No Edema, No Clubbing, Cyanosis Skin: No Rash or Ulcers, No Nodules or Sclerosis Neurological: Alert and Oriented x 3, NL Sensation, NL Gait, NL Muscle Strength and Tone, - - CN II-XII intact. Result Diagrams: 05/09/17 05:53 05/12/17 05:55 Assess/Plan/Problems-Billing Assessment: Mr. Zamora is a 66 yo M with a PMH of who was admitted on 05/08/17 with orthopnea and SOB found to have newly diagnosed systolic CHF with EF 10%. Now asymptomatic , plan for [employer] Lifevest when available and cardiac catheterization when renal function stable. - Patient Problems (1) CHF (congestive heart failure) Current Visit: Yes Status: Acute Code(s): I50.9 - HEART FAILURE, UNSPECIFIED SNOMED Code(s): 25970875 Comment: Symptoms greatly improved, no orthopnea or BURROWS. Newly diagnosed with EF < 20%. Appreciate cardiology consultation. Unable to cardiac cath as his creatinine is rising. Will reevaluate in AM for catheterization. Continue aspirin, digoxin, lasix, lisinopril, metoprolol, spironolactone. (2) V-tach Current Visit: Yes Status: Acute Code(s): I47.2 - VENTRICULAR TACHYCARDIA SNOMED Code(s): 95390556 Comment: Non-sustained, asymptomatic. Replete K and Mag Life vest ordered. Will place when available. (3) Hypertension Current Visit: Yes Status: Acute Code(s): I10 - ESSENTIAL (PRIMARY) HYPERTENSION SNOMED Code(s): 48825116 Comment: SBP 100-150s. Continue lisinopril, metoprolol, lasix and spironolactone. (4) DVT prophylaxis Current Visit: Yes Status: Acute Code(s): VVJ3756 - SNOMED Code(s): 112843104 Comment: Heparin SQ. (5) Full code status Current Visit: Yes Status: Acute Code(s): Z78.9 - OTHER SPECIFIED HEALTH STATUS SNOMED Code(s): 433750581 Comment: Status and Disposition: Inpatient with expected LOS > 2 days. Anticipate discharge to home when medically stable and life vest received.
[2017-05-13] MEDS: Heparin VIAL(*) 5000 UNITS/ML VIAL (FIVE THOUSAND) SUBCUT SCH ×3 (05:57→22:15)
[2017-05-13 06:43] LABS: EGFR Non-African American 63.4 (>60)
[2017-05-13] MEDS ORDERED: NS 0.9% 1000 ML* 1,000 ML IV SCH ×2 (11:30→15:00)
[2017-05-13] MEDS: Aspirin Low Dose CHEW TAB* 81 MG PO SCH (11:56)
[2017-05-13] MEDS: Lisinopril TAB* 5 MG PO SCH (11:56)
[2017-05-13] MEDS: Metoprolol Tartrate TAB* 25 MG PO SCH ×2 (11:56→22:14)
[2017-05-13] MEDS: Spironolactone TAB* 25 MG PO SCH (12:23)
[2017-05-13] MEDS: Furosemide TAB* 20 MG PO SCH (12:23)
[2017-05-13] MEDS ORDERED: Iodixanol* (CONTRAST) 320 MG/ML 100 ML SDV ONE (13:45)
[2017-05-13] MEDS ORDERED: Heparin 2 UNITS/ML IVPREMIX* 2,000 ML IV ONE (13:45)
[2017-05-13] MEDS ORDERED: Lidocaine 1% INJ* 10 MG/ML 30 ML SDV ONE (13:46)
[2017-05-13] MEDS ORDERED: Heparin(*) 1000 UNIT/ML 10 ML VIAL CATH LAB IV ONE (13:48)
[2017-05-13] MEDS ORDERED: nitroGLYCERIN DRIP* 25,000 MCG/250 ML BTL ONE (13:48)
[2017-05-13] MEDS ORDERED: VERAPAMIL 2.5 MG/ML 2 ML VIAL ** 5 mg/2 ml ONE (13:49)
[2017-05-13] MEDS ORDERED: Midazolam* 1 MG/ML 10 ML VIAL (10 MG) ONE (13:49)
[2017-05-13] MEDS ORDERED: fentaNYL* 50 MCG/ML 2 ML VIAL (100 MCG VIAL) ONE (13:49)
[2017-05-13] MEDS: Digoxin TAB* 0.125 MG PO SCH (18:14)
--- NOTE | 2017-05-13 21:24 | PN ---
Subjective Date of Service: 05/13/17 Interval History: Patient seen and examined in AM. No complaints, increased exercise tolerance. No CP, SOB, N/V, Abdominal pain, diarrhea, F/C, Diarrhea, constipation, or other pain. Patient amenable to going to cath today. Discussed with cardiology and the patient was taken for a cardiac catheterization in the afternoon with no complications. Family History: Unchanged from Admission Social History: Unchanged from Admission Past Medical History: Unchanged from Admission Objective Active Medications: Aspirin (Aspirin Low Dose Tab*) 81 mg PO DAILY [facility] Last Admin: 05/13/17 11:56 Dose: 81 mg Digoxin (Lanoxin Tab*) 0.125 mg PO 1700 [facility] Last Admin: 05/13/17 18:14 Dose: 0.125 mg Furosemide (Lasix Tab*) 20 mg PO DAILY [facility] Last Admin: 05/13/17 12:23 Dose: Not Given Heparin Sodium (Porcine) (Heparin Vial(*)) 5,000 units SUBCUT Q8HR [facility] Last Admin: 05/13/17 15:00 Dose: Not Given Sodium Chloride (Ns 0.9% 1000 Ml*) 1,000 mls @ 100 mls/hr IV .per rate [facility] Last Admin: 05/13/17 12:19 Dose: 100 mls/hr Lisinopril (Prinivil Tab*) 2.5 mg PO DAILY [facility] Last Admin: 05/13/17 11:56 Dose: 2.5 mg Metoprolol Tartrate (Lopressor Tab*) 12.5 mg PO Q12HR [facility] Last Admin: 05/13/17 11:56 Dose: 12.5 mg Spironolactone (Aldactone Tab*) 25 mg PO DAILY [facility] Last Admin: 05/13/17 12:23 Dose: Not Given Vital Signs - 8 hr 05/13/17 05/13/17 05/13/17 14:30 14:45 14:52 Temperature Pulse Rate Respiratory 14 16 Rate Blood Pressure 129/94 132/97 (mmHg) O2 Sat by Pulse 92 Oximetry 05/13/17 05/13/17 05/13/17 15:00 15:15 15:30 Temperature Pulse Rate 56 51 63 Respiratory 16 12 16 Rate Blood Pressure 147/86 123/75 154/78 (mmHg) O2 Sat by Pulse 96 94 94 Oximetry 05/13/17 05/13/17 05/13/17 15:45 16:00 16:05 Temperature Pulse Rate 57 57 63 Respiratory 17 15 17 Rate Blood Pressure 126/75 141/72 (mmHg) O2 Sat by Pulse 94 95 96 Oximetry 05/13/17 05/13/17 05/13/17 16:30 16:33 16:45 Temperature Pulse Rate 54 Respiratory 12 Rate Blood Pressure 129/59 129/59 117/62 (mmHg) O2 Sat by Pulse 97 96 Oximetry 05/13/17 05/13/17 18:14 19:41 Temperature 98.3 F 97.5 F Pulse Rate 60 63 Respiratory 20 Rate Blood Pressure 131/76 122/58 (mmHg) O2 Sat by Pulse 97 97 Oximetry Oxygen Devices in Use Now: None Appearance: Patient is a 66yo male who appears stated age and is sitting in the bed in NAD. Eyes: No Scleral Icterus, PERRLA Ears/Nose/Mouth/Throat: NL Teeth, Lips, Gums, Clear Oropharnyx, Mucous Membranes Moist Neck: NL Appearance and Movements; NL JVP, Trachea Midline, No Thyroid Enlargement, Masses Respiratory: Symmetrical Chest Expansion and Respiratory Effort, Clear to Auscultation Cardiovascular: NL Sounds; No Murmurs; No JVD, RRR, No Edema Abdominal: NL Sounds; No Tenderness; No Distention, No Hepatosplenomegaly Lymphatic: No Cervical Adenopathy Extremities: No Edema, No Clubbing, Cyanosis Skin: No Rash or Ulcers, No Nodules or Sclerosis Neurological: Alert and Oriented x 3, NL Sensation, NL Muscle Strength and Tone , - - CN II-XII intact. Result Diagrams: 05/09/17 05:53 05/13/17 05:53 Assess/Plan/Problems-Billing Assessment: Mr. Zamora is a 66 yo M with a PMH of who was admitted on 05/08/17 with orthopnea and SOB found to have newly diagnosed systolic CHF with EF 10%. Now asymptomatic , plan for [employer] Lifevest when available and cardiac catheterization when renal function stable. - Patient Problems (1) CHF (congestive heart failure) Current Visit: Yes Status: Acute Code(s): I50.9 - HEART FAILURE, UNSPECIFIED SNOMED Code(s): 18841445 Comment: Symptoms greatly improved, no orthopnea or BURROWS. Newly diagnosed with EF < 20%. Appreciate cardiology consultation. Taken for cardiac catheterization today which was performed without complication and showed no stentable disease. Continue aspirin, digoxin, lasix, lisinopril, metoprolol, spironolactone. (2) V-tach Current Visit: Yes Status: Acute Code(s): I47.2 - VENTRICULAR TACHYCARDIA SNOMED Code(s): 51433226 Comment: Non-sustained, asymptomatic.Frequent PVCs Replete K and Mag Life vest ordered. Will place when available. (3) Hypertension Current Visit: Yes Status: Acute Code(s): I10 - ESSENTIAL (PRIMARY) HYPERTENSION SNOMED Code(s): 39841988 Comment: SBP 100-150s. Continue lisinopril, metoprolol, lasix and spironolactone. (4) DVT prophylaxis Current Visit: Yes Status: Acute Code(s): FPF3229 - SNOMED Code(s): 214251330 Comment: Heparin SQ. (5) Full code status Current Visit: Yes Status: Acute Code(s): Z78.9 - OTHER SPECIFIED HEALTH STATUS SNOMED Code(s): 144481232 Comment: Status and Disposition: Inpatient with expected LOS > 2 days. Anticipate discharge to home when medically stable and life vest received.
[2017-05-14] MEDS: Heparin VIAL(*) 5000 UNITS/ML VIAL (FIVE THOUSAND) SUBCUT SCH ×2 (05:58→14:00)
[2017-05-14 06:16] LABS: ABS Basophils 0.1 10^3/ul (0-0.2); ABS Eosinophils 0.6 10^3/ul (0-0.6); ABS Lymphocytes 1.6 10^3/ul (1.0-4.8); ABS Monocytes 0.7 10^3/ul (0-0.8); ABS Neutrophils 3.9 10^3/ul (1.5-7.7); ABS Nucleated RBC 0 10^3/ul; Eosinophil % 8.6 % (0-6); Hematocrit 47 % (42-52); Hemoglobin 16.5 g/dl (14.0-18.0); Lymphocyte % 23.8 % (25-47); Mean Corpuscular HGB Conc 35 g/dl (31-36); Mean Corpuscular Hemoglobin 31 pg (27-31); Mean Corpuscular Volume 90 fL (80-94); Mean Platelet Volume 10 um3 (7.4-10.4); Nucleated Red Blood Cells % 0.1; Platelet Count 209 10^3/ul (150-450); Red Blood Count 5.25 10^6/ul (4.0-5.4); Red Cell Distribution Width 14 % (10.5-15); White Blood Count 6.9 10^3/ul (3.5-10.8)
[2017-05-14] MEDS: Furosemide TAB* 20 MG PO SCH (08:13)
[2017-05-14] MEDS: Spironolactone TAB* 25 MG PO SCH (08:13)
[2017-05-14] MEDS: Aspirin Low Dose CHEW TAB* 81 MG PO SCH (08:13)
[2017-05-14] MEDS: Lisinopril TAB* 5 MG PO SCH (08:13)
[2017-05-14] MEDS: Metoprolol Tartrate TAB* 25 MG PO SCH (08:14)
--- NOTE | 2017-05-14 12:07 | CATH ---
CC: Dr. Flores CATH REPORT: DATE OF PROCEDURE: 05/13/17 PRIMARY CARE PHYSICIAN: None. CREDIT INTERVIEWER: Dr. Flores. PROCEDURE: Right radial artery access, bilateral selective coronary cineangiography. HISTORY: A 66-year-old male with severe LV systolic dysfunction, referred for cardiac cath after diu resis for his congestive heart failure. Cath was delayed until creatinine returned to baseline. PROCEDURE ACCESS: Right radial artery sheath 6-F slender. MEDICATIONS: 1. Subcu lidocaine. 2. IV Versed. 3. IV fentanyl. 4. Heparin 3000 units. 5. Nitroglycerin 300 mcg. 6. Verapamil 3 mg IA. DIAGNOSTIC CATHETER: 5F TIG4. HEMODYNAMICS: Initial BP 158/83 and final BP 123/71. ANGIOGRAPHY: Left Main: The left main is short, has no stenosis. LAD: The LAD is moderate, has diffuse nonobstructive plaquing without significant stenosis. The torsten y proximal LAD has a 30% to 40% stenosis. Circumflex: The circumflex is moderate, not dominant with a bifurcated large ramus branch, distally the circumflex supplies 2 smaller posterolaterals, the mid circumflex has 40% to 50% or less stenosis . RCA: The RCA is large, dominant with luminal irregularity, but no significant stenosis, and supplies a moderate PDA and 2 smaller posterolaterals. The RCA has no significant stenosis. CONCLUSION: 1. Diffuse nonobstructive coronary atherosclerosis. 2. Nonischemic cardiomyopathy. 3. Successful right radial artery access. [id number]/[facility] #: [id number]
[2017-05-14 15:30] VITALS: BP 147/65
--- NOTE | 2017-05-16 12:59 | DS ---
CC: Dr. Flores * DISCHARGE SUMMARY: DATE OF ADMISSION: 05/08/17 DATE OF DISCHARGE: 05/14/17 PRIMARY CARE PROVIDER: No one. OUTPATIENT PRE BILLING SPECIALIST: Will be Dr. Flores. MY ATTENDING WHILE IN THE HOSPITAL: Dr. Sachin Mccabe.* (DICTATED BY KARINA BOWERS) PRIMARY DISCHARGE DIAGNOSES: 1. Cardiomyopathy. 2. Ventricular tachycardia. 3. Hypertension. SECONDARY DISCHARGE DIAGNOSIS: None. STUDIES DONE WHILE IN THE HOSPITAL: Transthoracic echocardiogram from 05/08/17 read as left ventricular chamber size mildly dilated, severe global hypokinesis of the left ventricle is observed. There is severely decreased left ventricular systolic function. Estimated ejection fraction is less than 20%, left atrium is mild to moderately dilated. Right atrium is mildly dilated. There is mild to moderate mitral regurgitation. There is mild to moderate tricuspid regurgitation. There is trivial pericardial effusion, it is pretty visualized pericardial, has no signs of significant hemodynamic compromise. Electrocardiogram from 05/08/17 shows PVCs, abnormal R-wave progression, congenital multifocal PVCs of right bundle branch block, T-wave inversions in V4 , V5, V6, left atrial enlargement, normal axis early repolarization, frequency 2 to 3. No other abnormalities. EKG from 05/09/17 shows no PVCs, an early repolarization T-wave inversions across all from V1 to V6, normal axis, persistent left atrial enlargement. No other abnormalities. No other significant changes, QTc 498. EKG from 05/10/17 shows return of multifocal PVCs, QTc of 586, left ventricular hypertrophy. No other significant changes from previous exam. Chest x-ray from 05/08/17 read as cardiomegaly with pulmonary vascular congestion. Cardiac catheterization from 05/13/17 read as diffuse nonobstructive cardiac atherosclerosis, nonischemic cardiomyopathy, status post right radial arterial access. MEDICATIONS AT DISCHARGE: 1. Multivitamins 1 tab p.o. daily. 2. Aspirin 81 mg p.o. daily. 3. Digoxin 0.125 mg p.o. daily. 4. Furosemide 20 mg p.o. daily. 5. Lisinopril 2.5 mg p.o. daily. 6. Metoprolol 12.5 mg p.o. b.i.d. 7. Spironolactone 25 mg p.o. daily. New medications at discharge: 1. Aspirin. 2. Digoxin. 3. Furosemide. 4. Lisinopril. 5. Metoprolol. 6. Spironolactone. Medications discontinued at discharge: Aspirin 650 mg p.o. daily. HOSPITAL COURSE: This is a brief summary of patient's presentation. For more details, please see history and physical from Hamilton Maki NP on 05/08/17. In brief, the patient is a 66-year-old male with no past medical history mainly due to not seeing a physician, who over the last week had significantly increasing dyspnea on exertion without chest tightness and pressure. He has also had 2 weeks of worsening shortness of breath, no weight gain, orthopnea. The patient denied leg swelling and patient has known hypertension, but this is new. The patient was restarted on aspirin. The patient presented to [facility]. He had PVCs, his troponin was elevated and his BNP was 3600. He was transferred to [facility] and admitted for congestive heart failure and cardiomyopathy. The patient's blood pressure was elevated significantly at [place], but was 164/118 when he presented to the emergency department. The patient was started on Lasix. An echocardiogram was performed and read as above. The patient's troponins were slightly elevated at 0.07, 0.07, 0.08, and 0.07. The patient had no elevated CRP. The patient's LDL cholesterol was 101. The patient was seen in consultation by Dr. Theodora Flores and was diagnosed with cardiomyopathy of unknown cause, possibly ischemic. The patient was started on low dose beta-priscilla, digoxin, DARYL inhibitor, Lasix, and nitro. Nitro was discontinued. The patient was stressed to have sodium less than 2 g per day and fluid less than 2 L in 24 hours. The patient was followed up by Dr. Gauthier who added on spironolactone, stopped the nitro paste. The patient was scheduled for a cardiac catheterization, but this was cancelled due to his creatinine increasing from 1.05 on admission to 1.36 max on 05/12/17 for concern of contrast-induced nephropathy. The patient improved greatly with regards to his dyspnea on exertion with diuresis and initiation with medications as above. The patient's hemoglobin A1c is 5.2. The patient had no insurance upon presentation to the hospital. He was set up with Medicaid and his main delay to discharge was obtaining a LifeVest, which was recommended by Cardiology and Medicaid was eventually obtained on 05/13/17. The patient's kidney function improved, creatinine improved to 1.16 on 05/13/17 and patient was scheduled for a cardiac catheterization, which was performed on 05/13/17 and was read as above. The patient was not started on a statin due to lack of coronary artery disease and no other indication for statin therapy. The patient was fit with his LifeVest and was discharged to follow up with Dr. Flores for further investigation of his cardiomyopathy and for maintenance of his CHF outpatient. PHYSICAL EXAMINATION ON THE DAY OF DISCHARGE: General: The patient is a 66- year- old male who appears younger than stated age and sitting comfortably in bed, in no acute distress. Vital Signs: At the time of discharge, temperature 97.7, pulse rate 61, respiratory rate 16, oxygen saturation 100% on room air, blood pressure 147/65. HEENT: Head: Normocephalic, atraumatic. Sclerae anicteric. No conjunctival injection. Nasal mucosa moist. Oral mucosa moist. No pharyngeal erythema, discharge, or exudate. Neck: Supple, nontender. No lymphadenopathy. No carotid bruit auscultated. Cardiac: Regular rate and rhythm. No clicks, murmurs, gallops, or rubs. S1, S2 present. No S3, S4. Pulses present in the bilateral dorsalis pedis, posterior tibialis, and radial areas. No lower extremity edema noted. Respiratory: Clear to auscultation bilaterally. No wheezes, rales, or rhonchi. Good air exchange bilaterally. Abdomen: Soft, nontender, nondistended. Bowel sounds present and normoactive in all 4 quadrants. No abdominal bruits auscultated. No hepatosplenomegaly. Genitourinary: No suprapubic tenderness or CVA tenderness. Skin: Clean, dry and intact. No rash. Neuro: Cranial nerves II through XII intact. Strength preserved. Normal gait. Alert and oriented x3. Psychiatric: Very pleasant and cooperative. LABORATORY DATA ON DAY OF DISCHARGE: White blood cell count 6.9, hemoglobin 16.5, platelet count 209. Sodium 135, potassium 4.6, chloride 104, carbon dioxide 24, anion gap 7, BUN 26, creatinine 1.12. Glucose 98, calcium 9.3, magnesium 2.2. Other laboratory values of note from admission, digoxin level 0.3 on 05/12/17, creatinine peaked at 1.36 on 05/12/17 as well. DISCHARGE PLAN: The patient will be discharged to home with ZOLL LifeVest. The patient will follow up with Dr. Flores in 1 month for further investigation of his cardiomyopathy as above. The patient should return to the hospital for alarming symptoms such as chest pain, significantly increased shortness of breath, or other alarming symptoms. The patient should wear his ZOLL LifeVest and return to the hospital if it discharges. The patient should take his medications as above. The patient should establish with a primary care provider and followup with them within 1 week for general medical management. The patient should engage in activity as tolerated, avoiding overly strenuous activity. The patient should have a heart healthy diet as described above with less than 2 g of salt within 24 hour period and less than 2 L of fluid. TIME SPENT: Approximately 60 minutes was spent on this discharge, 30 of which was spent [id number] with the patient obtaining history and physical and discussing treatment plan. KARINA BOWERS [id number]/[facility] #: [id number] [place]
== END 2017-05-14 16:49 | disposition home or self-care (01) | DRG 191 ==
LOC: ED 11:08 → MEDTELE 12:59
PROVIDERS: ADMIT Internal Medicine; ATTEND Internal Medicine
PROC: B211YZZ Fluoroscopy of Multiple Coronary Arteries using Other Contrast (ICD-10-PCS; 2017-05-13)
PROC: 4A023N7 Measurement of Cardiac Sampling and Pressure, Left Heart, Percutaneous Approach (ICD-10-PCS; principal; 2017-05-13 14:15)
DX: I42.8 Other cardiomyopathies (principal); I50.21 Acute systolic (congestive) heart failure; I47.2 Ventricular tachycardia; I11.0 Hypertensive heart disease with heart failure; I45.10 Unspecified right bundle-branch block; I25.10 Atherosclerotic heart disease of native coronary artery without angina pectoris; E66.9 Obesity, unspecified; I11.9 Hypertensive heart disease without heart failure; Z87.891 Personal history of nicotine dependence; Z82.49 Family history of ischemic heart disease and other diseases of the circulatory system; Z68.29 Body mass index [BMI] 29.0-29.9, adult; I08.1 Rheumatic disorders of both mitral and tricuspid valves
CPT/HCPCS: 36415; 71045; 80048; 80053; 80061; 80162; 83036; 83605; 83735; 83880; 84443; 84484; 85025; 85610; 85652; 86140; 93005; 93306; 93454; 94760; 99156; 99283; A9270-GY; J1644; J1940; J2250; J3010

== ENCOUNTER 2018-08-04 08:23 | Observation (INO) | payer MEDICARE, MEDICAID ==
[2018-08-04] MEDS ORDERED: Midazolam* 1 MG/ML 5 ML VIAL (5 MG) ONE (10:08)
[2018-08-04] MEDS ORDERED: fentaNYL* 50 MCG/ML 2 ML VIAL (100 MCG VIAL) ONE (10:08)
[2018-08-04] MEDS ORDERED: VERAPAMIL 2.5 MG/ML 2 ML VIAL ** 5 mg/2 ml ONE (10:09)
[2018-08-04] MEDS ORDERED: nitroGLYCERIN DRIP* 25,000 MCG/250 ML BTL ONE (10:09)
[2018-08-04] MEDS ORDERED: Iodixanol 320 (CONTRAST) 100 ML SDV ONE ×2 (10:09→11:09)
[2018-08-04] MEDS ORDERED: Heparin 2 UNITS/ML IVPREMIX* 0 UNIT/0 ML BAG IV ONE (10:09)
[2018-08-04] MEDS ORDERED: Heparin(*) 1000 UNIT/ML 10 ML VIAL CATH LAB IV ONE (10:09)
[2018-08-04] MEDS ORDERED: Lidocaine 1% INJ* 10 MG/ML 30 ML SDV ONE (10:14)
[2018-08-04] MEDS ORDERED: Adenosine* 3 MG/ML VIAL ONE (10:54)
[2018-08-04] MEDS ORDERED: Eptifibatide IV (Load dose)(*) 2 MG/ML 10 ml VIAL ONE (11:08)
[2018-08-04] MEDS ORDERED: Ticagrelor* 90 MG TAB PO ONE (11:10)
[2018-08-04] MEDS ORDERED: Nitroglycerin TAB 0.4 MG* 0.4 MG TAB SL PRN (13:32)
[2018-08-04] MEDS ORDERED: Acetaminophen TAB* 325 MG PO PRN (13:32)
[2018-08-04] MEDS ORDERED: NS 0.9% 1000 ML** 1,000 ML IV SCH (13:45)
[2018-08-04 15:01] LABS: HDL Cholesterol 35.9 mg/dL
[2018-08-04] MEDS: Digoxin TAB* 0.125 MG PO SCH ×2 (16:50→18:04)
[2018-08-04] MEDS ORDERED: amLODIPine TAB* 5 MG PO PRN (16:55)
--- NOTE | 2018-08-04 17:23 | CATH ---
CC: Dr. Arias; Maria Del Carmen Dhillon NP; Dr. Flores * STENT REPORT: DATE OF PROCEDURE: 08/04/18 - ROOM #ICU-07 PRIMARY CARE PHYSICIAN: Dr. Arias. FELT HANGER: Maria Del Carmen Dhillon NP and Dr. Flores. PROCEDURE: Right radial artery access, bilateral selective coronary cineangiography, left heart catheterization. Left ventriculogram not done because of reduced creatinine clearance from last year. HISTORY: A 67-year-old male with previously documented nonischemic cardiomyopathy, cath in 2018 showed nonobstructive coronary artery disease. He subsequently with medical therapy had improvement in his LV systolic function back to an EF of 55% to 60%. He then had a 17-beat run of nonsustained VT apparently during exercise, a stress echo was abnormal with a drop in ejection fraction with exercise, he was referred for coronary angiography. PROCEDURE ACCESS: Right radial artery sheath, 6F slender. MEDICATIONS: 1. Subcu lidocaine. 2. IV Versed. 3. IV fentanyl. 4. Heparin 3000 units. 5. Verapamil 3 mg. 6. Nitroglycerin 300 mcg IA. 7. Heparin 5000 units IV. 8. Brilinta 180 mg p.o. loading dose. 9. IC nitroglycerin 200 mcg. 10. IC adenosine 100, 100 mcg for FFR of LAD. DIAGNOSTIC CATHETER: 5F TIG4, 5FL 3.5 which was also used to measure LV pressure. The 5FL 3.5 was used to evaluate the intermediate proximal LAD stenosis with FFR after 200 mcg of IC nitroglycerin and then 100 mcg boluses of intracoronary adenosine with FFR of 0.67, 0.67. GUIDING CATHETERS: 6FVL 3.5 with the FFR wire, which was used to deploy a 3 x 12 Synergy drug-eluting stent proximal LAD, 11 atmospheres, 10 seconds, then postdilated with a 3 x 12 NC balloon at 16 atmospheres for 60 seconds. Even though inflation was held for 60 seconds, he had no chest discomfort or any other symptoms. HEMODYNAMICS: Initial AO 124/73, LV 122/3-9, no aortic valve gradient on pullback. ANGIOGRAPHY: RCA: The RCA is large, dominant, has minor proximal luminal irregularity as before, supplies a large caliber PDA and several smaller posterolaterals. The RCA has no significant stenosis. Left main: The left main is relatively short, has no stenosis. LAD: The LAD has progression to now with 60% stenosis with probably a preceding ulcer. The vessel then reconstitutes, supplies for septal, it supplies several moderate diagonals, distal LAD has scattered luminal irregularity, but no significant stenosis. Proximal LAD stenosis was evaluated with FFR and was found to be ischemic. Circumflex: The circumflex is large, not dominant with a moderate ramus, large first marginal, ends with a large posterolateral, circumflex shows scattered luminal irregularity, but no significant stenosis. After LAD stent placement and high pressure postdilatation, there is no residual stenosis, flow is ADALBERTO-III. There is no compromise of the left main. CONCLUSION: 1. Single-vessel disease LAD with progression from 1 year ago with intermediate stenosis with ischemic FFR, excellent angiographic result with drug -eluting stent placement. 2. Normal left-sided hemodynamics. 3. Successful right radial artery access. [id number]/[facility] #: [id number] MTDD
[2018-08-04] MEDS: Ticagrelor* 90 MG TAB PO SCH (20:11)
[2018-08-04] MEDS: Metoprolol Tartrate TAB* 25 MG PO SCH (20:11)
[2018-08-05 05:10] LABS: BUN/Creatinine Ratio 24.8 (8-20); Calcium 9.2 mg/dL (8.6-10.3); EGFR African American 70.1 (>60); Potassium 4.5 mmol/L (3.5-5.0)
[2018-08-05] MEDS: Metoprolol Tartrate TAB* 25 MG PO SCH (07:18)
[2018-08-05] MEDS: Ticagrelor* 90 MG TAB PO SCH (07:19)
[2018-08-05] MEDS ORDERED: Aspirin 81 mg CHEW TAB* 81 MG TAB.CHEW PO SCH (09:00)
[2018-08-05] MEDS ORDERED: Spironolactone TAB* 25 MG PO SCH (09:00)
[2018-08-05] MEDS ORDERED: Multivitamins/Minerals TAB PO SCH (09:00)
[2018-08-05] MEDS ORDERED: Lisinopril TAB* 5 MG PO SCH (09:00)
--- NOTE | 2018-08-05 11:37 | DS ---
DISCHARGE SUMMARY: DATE OF ADMISSION: 08/04/18 TENTATIVE DATE OF DISCHARGE PENDING NO COMPLICATIONS: 08/05/18 ATTENDING PHYSICIAN: Dr. Porfirio Clay, Interventional Cardiology* (dictated by Penelope Rodriguez NP). PRIMARY PHYSICIAN: Dr. Arias in [place]. PRIMARY INSPECTOR AND MENDER: Dr. Flores. ADMITTING DIAGNOSES: 1. A 17-beat count of nonsustained VT with abnormal exercise stress echocardiogram, suggestive of ischemia with known diffuse nonobstructive coronary atherosclerosis, here for elective left heart catheterization. 2. Known diffuse coronary artery disease, nonobstructive based on April 2017 catheterization. 3. History of systolic heart failure secondary to malignant hypertension, on lisinopril, metoprolol, and Aldactone therapy. 4. History of hypertension, on Aldactone, lisinopril, and metoprolol therapy. PROCEDURES PERFORMED: The patient had a left heart catheterization on 08/04/[address] Clay. At that time, a 6-[place]ib[place] radial sheath was placed into right radial artery for access. Left main was relatively short, no stenosis. LAD had progression of stenosis, now 60% with probably a preceding ulcer. FFR 0.67. Left circumflex large; not dominant with a moderate ramus, large first marginal, ends with a large posterolateral, circumflex shows scattered luminal irregularity, but no significant stenosis. Right coronary artery; large dominant, has mild proximal luminal irregularity, supplies large caliber PDA and several small posterolaterals. The patient underwent successful 3 x 12 mm Synergy drug-eluting stent to proximal LAD given lesion was hemodynamically significant per FFR. COMPLICATIONS: None. COURSE OF HOSPITAL STAY: This is a pleasant 67-year-old male patient with a notable history of systolic heart failure, diagnosed in 2017, thought to be related to his malignant hypertension with normalization of EF based on echocardiogram, LVEF was 55 to 60%. He was evaluated in our practice on 08/08. Holter monitor was updated prior to appointment and was reviewed. He had high density PVC burden, 1336 PVCs that had increased to sleep. He had occasional runs of nonsustained VT lasting up to 17-beat count that was at 10: 45 in the morning. The patient states this occurred while he was exerting himself. Potassium was elevated at that point, thus Aldactone was reduced to 12.5 mg. The patient was risk stratified with an exercise stress echo on , which was abnormal and suggestive of ischemia given diffuse [address]-segment and horizontal depression in inferior and anterior lateral leads at peak heart rate and remained 5 minutes into recovery. There was a global reduction in ejection fraction at peak heart rate. The patient had blood work obtained on prior to cardiac catheterization. White count 8.2, hemoglobin 14.2, hematocrit 42, platelets 267. INR 0.98. Potassium 5.1, creatinine 1.49. He underwent the above-mentioned procedure, postprocedure was transferred to the ICU for monitoring overnight. The patient offers no complaints, states he did not get much sleep due to noisy environment. He denies chest pain, shortness of breath, dizziness, palpitations, right radial access site pain. He is sitting in his chair upon entering room and offers no complaints. Current vital signs; pulse 53, respirations 13, oxygenation 95% on room air, blood pressure 144/73. The patient did have periods of relative bradycardia, heart rate 45 to 50. No evidence of nonsustained VT on telemetry, rare PVC. Blood work was updated this morning; sodium 135, potassium 4.5, chloride 105, carbon dioxide 25, creatinine 1.25. Upon further review of prior basic metabolic panel it appears that creatinine has been 1.2 to 1.4 since May 2017. LDL 115, total cholesterol 177, HDL 35, and triglycerides 129. The patient was started on moderate intensity statin therapy with Lipitor 40 mg p.o. q.h.s. Lisinopril increased to 5 mg a day. Radial access site was examined, there is no evidence of hematoma. Cap refill less than 3 seconds, strong, palpable pulse, nontender to palpation. The patient will go home with free 30-day supply of Brilinta therapy. Pending no complications, the patient is to be discharged later today. He has been ambulating the halls with no complaints and no evidence of ventricular ectopy. DISCHARGE FOLLOWUP APPOINTMENTS: With: 1. Dr. Flores on 08/11/18 at 04:40 p.m. at the [place] office. 2. Dr. Arias, PCP, in [place] in 7 to 10 days. FOLLOWUP BLOOD WORK: The patient will need a fasting lipid panel and liver function tests in 6 to 8 weeks time given initiation of statin therapy. ACTIVITY RESTRICTIONS: No driving for 2 days. No lifting more than 5 to 10 pounds for 7 days. The patient was instructed not to soak right radial access site in a hot tub or in a bath for the next 3 to 5 days. DISCHARGE MEDICATIONS: Per discharge med rec. DISPOSITION: Pending course, Dr. Clay has personally seen and examined patient and agrees the above assessment and plan. Please note that due to relative bradycardia on telemetry and normalization of EF with no prior document history of AFib, digoxin therapy was discontinued. The patient's relative bradycardia will need to be followed up in our practice on 08/11/18 with a repeat ECG. The patient was not aware of renal insufficiency. I had asked him to follow up with his PCP given baseline creatinine dating back to May 2017 has been 1.2 to 1.4. PENELOPE RODRIGUEZ NP [id number]/[facility] #: [id number] [facility]
[2018-08-05 12:33] VITALS: BP 146/84
[2018-08-05] MEDS ORDERED: Atorvastatin* 40 MG TAB PO SCH (21:00)
== END 2018-08-05 12:33 | disposition home or self-care (01) ==
LOC: CHICATH 08:23 → INTOOBSV 11:59 → ICU 11:59
PROVIDERS: ADMIT Internal Medicine Cardiovascular Disease; ATTEND Internal Medicine Cardiovascular Disease
DX: I42.9 Cardiomyopathy, unspecified (principal); I49.3 Ventricular premature depolarization; I47.1 Supraventricular tachycardia; I25.10 Atherosclerotic heart disease of native coronary artery without angina pectoris; I50.20 Unspecified systolic (congestive) heart failure; Z79.82 Long term (current) use of aspirin; Z95.9 Presence of cardiac and vascular implant and graft, unspecified
CPT/HCPCS: 36415; 80048; 80061; 85347; 87641; 93005; 93458; 99156; 99157; A9270-GY; C1725; C1769; C1876; C1887; C9600-LD; G0378; J0153; J1327; J1644; J2250; J3010